=== PATIENT | female | born 1955 | race American Indian/Alaskan Native ===

== ENCOUNTER 2016-11-27 18:37 | Emergency (ER) | payer MEDICARE ==
[2016-11-27] MEDS ORDERED: CATAPRES ONE (18:50)
[2016-11-27] MEDS ORDERED: CATAPRES PO ONE (18:51)
[2016-11-27 19:11] LABS: Basophils % (Auto) 0.9 % (0.0-1.8); Eosinophils % (Auto) 1.6 % (0.0-4.3); Hematocrit 45.4 % (30.3-42.9); Hemoglobin 15.1 gm/dl (10.1-14.3); Mean Corpuscular HGB Conc 33 % (30-34); Mean Corpuscular Hemoglobin 32 pg (28-32); Mean Corpuscular Volume 97 fl (79-97); Platelet Count 190 K/mm3 (140-440); Red Blood Count 4.66 M/mm3 (3.65-5.03); Red Cell Distribution Width 14.4 % (13.2-15.2); White Blood Count 7.3 K/mm3 (4.5-11.0)
[2016-11-27 19:21] LABS: INR 0.93 (0.87-1.13)
[2016-11-27 19:22] LABS: Partial Thromboplastin Time 28.3 Sec. (24.2-36.6)
[2016-11-27 19:32] LABS: Anion Gap 20 mmol/L; BUN/Creatinine Ratio 18.75; Blood Urea Nitrogen 15 mg/dL (7-17); Calcium 9.9 mg/dL (8.4-10.2); Carbon Dioxide 29 mmol/L (22-30); Chloride 99.2 mmol/L (98-107); Glucose 223 mg/dL (65-100); Potassium 4.2 mmol/L (3.6-5.0); Sodium 144 mmol/L (137-145)
--- NOTE | 2016-11-27 20:40 | Cat Scan Report ---
FINAL REPORT EXAM: CT HEAD/BRAIN WO CON HISTORY: head pain/HTN/blurry vision TECHNIQUE: CT head without contrast PRIORS: None. FINDINGS: No acute intra-axial or extra-axial hemorrhage is identified. There is no evidence of midline shift or mass effect. The ventricles and sulci are within normal limits. Hull-white matter differentiation is intact. No acute parenchymal abnormalities seen. Bony calvarium is grossly intact. Visualized portions of the mastoids and paranasal sinuses are unremarkable. IMPRESSION: Negative CT head
--- NOTE | 2016-11-28 03:29 | Emergency Department Report ---
ED Headache HPI - General Chief Complaint: High BP Stated Complaint: HIGH BLOOD PRESSURE Time Seen by Provider: 11/28/16 03:00 Source: patient Exam Limitations: no limitations - History of Present Illness Initial Comments: 61-year-old female depressed but is hypertension and CAD with stent placement presents to Hospital complaining of elevated blood pressure and headache. Headache started yesterday and gradually worsening. Headache was reported is 8/ 10 upon arrival, in the middle of her forehead and described as aching constant pain. Positive mild blurred vision reported. No neck stiffness, nausea, vomiting, chest pain, shortness of breath, diaphoresis, or focal numbness/ weakness reported. Patient admits to being noncompliant with her evening dose of metoprolol although she typically takes her losartan and metoprolol in the morning. Patient just started retaking her evening dose of her medication last night when symptoms started. Patient with the clonidine prior to my evaluation and states that her headache has resolved. She takes losartan 50 mg every morning and metoprolol 50 mg twice a day as per pt Allergies/Adverse Reactions: Allergies lisinopril Allergy (Verified 11/27/16 18:39) Angioedema Home Medications: Ambulatory Orders Aspirin [Aspirin TAB] 325 mg PO DAILY 05/27/13 Cyclobenzaprine [Flexeril] 10 mg PO TID PRN #14 tablet 05/27/13 Furosemide [Lasix] 20 mg PO DAILY 05/27/13 HYDROcodone/APAP 5-325 [Mccoy 5-325 mg TAB] 1 each PO Q6HR PRN #10 tablet Losartan [Cozaar] 50 mg PO QDAY 05/27/13 Metoprolol Xl [Metoprolol SUCCINATE ER TAB] 25 mg PO BID 05/27/13 ED Review of Systems ROS: Stated complaint: HIGH BLOOD PRESSURE Other details as noted in HPI Comment: All other systems reviewed and negative Other: Constitutional: No fevers Eyes: As per HPI ENT: No ear pain or throat pain Neck: Denies pain Respiratory: Denies cough wheezing shortness of breath Cardiovascular: Denies chest pain, palpitations, syncope GI: Denies abdominal pain, nausea, vomiting, diarrhea : Denies dysuria, urinary frequency, or urgency Musculoskeletal: Denies back pain, joint swelling Skin: Denies rash, lesions, erythema Neurologic: Denies numbness, weakness Psychiatric: Denies suicidal ideation, hallucinations \ ED Past Medical Hx - Past Medical History Previous Medical History?: Yes Hx Hypertension: Yes - Surgical History Past Surgical History?: Yes Hx Coronary Stent: Yes Additional Surgical History: Left knee replacement - Social History Smoking Status: Former Smoker Substance Use Type: None - Medications Home Medications: Home Medications Medication Instructions Recorded Confirmed Last Taken Type Aspirin [Aspirin TAB] 325 mg PO DAILY 05/27/13 05/27/13 05/27/13 History Cyclobenzaprine [Flexeril] 10 mg PO TID PRN #14 tablet 05/27/13 Unknown Rx Furosemide [Lasix] 20 mg PO DAILY 05/27/13 05/27/13 05/27/13 History HYDROcodone/APAP 5-325 [Mccoy 1 each PO Q6HR PRN #10 tablet 05/27/13 Unknown Rx 5-325 mg TAB] Losartan [Cozaar] 50 mg PO QDAY 05/27/13 05/27/13 05/27/13 History Metoprolol Xl [Metoprolol 25 mg PO BID 05/27/13 05/27/13 05/27/13 History SUCCINATE ER TAB] ED Physical Exam - General Limitations: No Limitations - Other Other exam information: General: No limitations, patient is alert in no acute distress Head exam: Atraumatic, normocephalic Eyes exam: Normal appearance ENT: Moist mucous membrane, normal oropharynx Neck exam: Normal inspection, full range of motion, no meningismus nontender Respiratory exam: Clear to auscultation bilateral, no wheezes, rales, crackles Cardiovascular: Normal rate and rhythm, normal heart sounds Abdomen: Soft, nondistended, and nontender, with normal bowel sounds, no rebound, or guarding Extremity: Full range of motion normal inspection no deformity Back: Normal Inspection, full range of motion, no tenderness Neurologic: Alert, oriented x3, cranial nerves intact, no motor or sensory deficit Psychiatric: normal affect, normal mood Skin: Warm, dry, intact ED Course Vital Signs 11/27/16 11/27/16 11/27/16 18:39 18:53 20:01 Temperature 98.1 F Pulse Rate 80 75 64 Respiratory 20 14 Rate Blood Pressure 226/104 226/104 190/79 Blood Pressure [Left] O2 Sat by Pulse 98 100 Oximetry 11/28/16 11/28/16 11/28/16 00:50 01:28 02:05 Temperature Pulse Rate 59 L 60 69 Respiratory 14 18 Rate Blood Pressure 185/82 184/83 Blood Pressure 159/65 [Left] O2 Sat by Pulse 100 100 98 Oximetry - Reevaluation(s) Reevaluation #1: 11/28/16 03:30 Patient was required approximately evaluation and had improvement in blood pressure and pain. No visual complaints ED Medical Decision Making - Lab Data Result diagrams: 11/27/16 19:01 11/27/16 19:01 Lab Results 11/27/16 11/27/16 11/27/16 Range/Units 19:01 19:01 19:01 WBC 7.3 (4.5-11.0) K/mm3 RBC 4.66 (3.65-5.03) M/mm3 Hgb 15.1 H (10.1-14.3) gm/dl Hct 45.4 H (30.3-42.9) % MCV 97 (79-97) fl MCH 32 (28-32) pg MCHC 33 (30-34) % RDW 14.4 (13.2-15.2) % Plt Count 190 (140-440) K/mm3 Lymph % (Auto) 46.7 H (13.4-35.0) % Bath % (Auto) 9.0 H (0.0-7.3) % Eos % (Auto) 1.6 (0.0-4.3) % Baso % (Auto) 0.9 (0.0-1.8) % Lymph # 3.4 (1.2-5.4) K/mm3 Bath # 0.7 (0.0-0.8) K/mm3 Eos # 0.1 (0.0-0.4) K/mm3 Baso # 0.1 (0.0-0.1) K/mm3 Seg Neutrophils % 41.8 (40.0-70.0) % Seg Neutrophils # 3.1 (1.8-7.7) K/mm3 PT 12.9 (12.2-14.9) Sec. INR 0.93 (0.87-1.13) APTT 28.3 (24.2-36.6) Sec. Sodium 144 (137-145) mmol/L Potassium 4.2 (3.6-5.0) mmol/L Chloride 99.2 (98-107) mmol/L Carbon Dioxide 29 (22-30) mmol/L Anion Gap 20 mmol/L BUN 15 (7-17) mg/dL Creatinine 0.8 (0.7-1.2) mg/dL Estimated GFR > 60 ml/min BUN/Creatinine Ratio 18.75 % Glucose 223 H (65-100) mg/dL Calcium 9.9 (8.4-10.2) mg/dL - EKG Data -: EKG Interpreted by Me (nsr 68, lvh, septal infarct, repol) - EKG Data When compared to previous EKG there are: no significant change - Radiology Data Radiology results: report reviewed (CT head: No acute) - Medical Decision Making Follow-up with her primary care doctor for further management of your blood pressure possible adjustments in medication. Taking medications as prescribed and do not miss doses. Records her blood pressure at home. Your Glucose was also elevated today and will need evaluation by your doctor. Take a copy of labs and CT were provided to you scheduled follow-up visit tomorrow. - Differential Diagnosis hypertensive emergency, ICH, migraine, tension headache, sinus headache Critical Care Time: No Critical care attestation.: If time is entered above; I have spent that time in minutes in the direct care of this critically ill patient, excluding procedure time. ED Disposition Clinical Impression: Uncontrolled hypertension, Headache, Noncompliance with medication regimen, Hyperglycemia Disposition: OP ADMIT IP TO THIS HOSP Is pt being admited?: No Does the pt Need Aspirin: No Condition: Stable Instructions: Hypertension (ED), Acute Headache (ED), Hyperglycemia, Non- Diabetic (ED) Additional Instructions: Your glucose was elevated initially but the level improved. Have your doctor continue to monitor your sugar as an outpatient. Continue your blood pressure medication is prescribed and tried not to miss doses. Continue to record your blood pressure measurements at home. Follow-up with the doctor tomorrow as scheduled. Take the copy of the labs and CAT scan provided to her doctor for follow-up. Return if symptoms worsen. Referrals: JAMILA CIFUENTES MD [Primary Care Provider] - 24 Hours (as scheduled) Time of Disposition: 03:56
[2016-11-28 06:47] VITALS: BP 157/74
== END 2016-11-28 04:45 | disposition admitted as inpatient to this hospital (09) ==
LOC: ED 18:37 → MERGE 18:37 → ED 11-28 04:45
DX: I10 Essential (primary) hypertension (principal); R73.9 Hyperglycemia, unspecified; Z91.14 Patient's other noncompliance with medication regimen; Z88.8 Allergy status to other drugs, medicaments and biological substances; Z79.82 Long term (current) use of aspirin; Z95.1 Presence of aortocoronary bypass graft; Z87.891 Personal history of nicotine dependence
CPT/HCPCS: 36415; 70450; 80048; 82962; 85025; 85610; 85730; 93005; 93010; 99284